=== PATIENT | female | born 1985 | race Caucasian/White ===

== ENCOUNTER 2016-09-05 09:19 | Emergency (ER) | payer OTHER ==
[~2016-09-05] VITALS: Ht 160 cm; Wt 78.0 kg
[~2016-09-05 09:19] MED LIST: CLIN-73 PO; GUAI-637 PO
[2016-09-05 09:22] VITALS: Ht 160 cm; Wt 78.0 kg
[2016-09-05] MEDS ORDERED: CEPH-443 PO (10:27)
[2016-09-05] MEDS ORDERED: BACTDS PO (10:27)
[2016-09-05] MEDS ORDERED: ERYTOPOI LEFT EYE (10:28)
--- NOTE | 2016-09-05 10:49 | ERD ---
ER Documentation Chief Complaint Date/Time DATE: 09/05/16 TIME: 10:41 Chief Complaint left eye swelling x 2 days HPI This is a 30-year-old female that presents to the ER with left upper eyelid swelling since Thursday. She believes that on Thursday a bug bit her left upper eyelid and upper eyelid began to feel very itchy. On Thursday and swelling increased. Today's swelling has worsened. Patient denies any eyelid pain or eyeball pain. She denies any vision changes, vision loss, halos around lights, flashing lights in her vision. She states that her eye is tearing. This morning her eye was sticky, she is unsure if this is considered discharge or not. Patient denies any eye trauma. ROS 12 point review of systems was done, all negative except per HPI. Medications Home Meds Active Scripts Erythromycin* (Erythromycin* Ophthalmic) 1 Applic Oint, 1 APPLIC LEFT EYE QID for 7 Days, EA Prov:SALINAS GUAN 09/05/16 Sulfamethoxazole-Trimethoprim* (Bactrim* DS) 800-160 Mg Tab, 1 TAB PO BID for 7 Days, TAB Prov:SALINAS GUAN 09/05/16 Cephalexin* (Keflex*) 500 Mg Capsule, 500 MG PO QID for 7 Days, CAP Prov:SALINAS GUAN 09/05/16 Guaifenesin* (Robitussin*) 100 Mg/5 Ml Syrup, 200 MG PO Q4H Y for COUGH, #120 ML Prov:RACHELLE JAUREGUI NP 06/09/16 Clindamycin Hcl* (Clindamycin Hcl*) 300 Mg Capsule, 450 MG PO TID for 10 Days, CAP Prov:REUBEN MATAMOROS PA-C 01/30/16 PMhx/Soc Medical and Surgical Hx: pt denies Surgical Hx Hx Alcohol Use: Yes (SOC) Hx Substance Use: No Hx Tobacco Use: No Smoking Status: Never smoker Physical Exam Vitals Vital Signs Date Time Temp Pulse Resp B/P Pulse Ox O2 Delivery O2 Flow Rate FiO2 09/05/16 09:22 98.2 77 20 132/86 99 Physical Exam GENERAL: The patient is well developed and appropriate for usual state of health , in no apparent distress. HEENT: PERRLA, nonpainful extraocular movements. Left upper eyelid is erythematous and swollen. It is not indurated. There is no conjunctival injection, no discharge is seen. There is no hyphema or hypopyon. CHEST: Clear to auscultation bilaterally. There are no rales, wheezes or rhonchi. HEART: Regular rate and rhythm. No murmurs, clicks, rubs or gallops. NEURO: Alert and oriented. SKIN: There is no apparent rash or petechia. The skin is warm and dry. Procedures/MDM Subconjunctival hemorrhage, bacterial conjunctivitis, viral conjunctivitis, allergic conjunctivitis,orbital cellulitis, hyphema, corneal abrasion, keratitis , uveitis, angle-closure glaucoma, retinal detachment, ruptured globe, blepharitis. I examined this patient along with Dr. Salazar who was also at bedside. This is likely blepharitis. Patient's conjunctiva or eye ball is not included. I doubt orbital cellulitis as patient does not have any painful extraocular movements. Patient will be sent home with Keflex and with Bactrim. She will also be sent home with erythromycin ointment. Patient is well- appearing she is afebrile. Patient has denied any vision loss, blurry vision or vision changes. He stable for outpatient therapy. Patient is to follow-up with her primary care doctor within 1-2 days or return to ER sooner if symptoms worsen. I discussed the possibility of following up with manager product marketing also. I shared my medical decision making with the patient she understands and agrees with plan. Departure Diagnosis: Primary Impression: Swollen eyelid Condition: Stable Patient Instructions: Blepharitis Additional Instructions: Call your primary care doctor TOMORROW for an appointment during the next 1-2 days.See the doctor sooner or return here if your condition worsens before your appointment time. SALINAS GUAN Sep 05, 2016 10:48
== END 2016-09-05 10:43 | disposition home or self-care (01) ==
LOC: FTE 09:19
DX: H02.844 Edema of left upper eyelid (principal); E03.9 Hypothyroidism, unspecified
CPT/HCPCS: 99284

== ENCOUNTER 2019-02-17 16:57 | Emergency (ER) | payer OTHER ==
[~2019-02-17] VITALS: Ht 162.6 cm; Wt 70.9 kg
[~2019-02-17 16:57] MED LIST changes: +BACTDS PO; +CEPH-443 PO; -CLIN-73 PO; +CLIN300C10 PO; +ERYTOPOI LEFT EYE
[2019-02-17 17:03] VITALS: BP 101/73; PULSE 94; RESP 22; Ht 162.6 cm; Wt 70.9 kg
[2019-02-17] MEDS ORDERED: IBUP-1542 PO (17:46)
[2019-02-17] MEDS ORDERED: ORA20G7 BUCCAL (17:46)
--- NOTE | 2019-02-17 17:49 | ERD ---
ER Documentation Chief Complaint Chief Complaint difficulty/painful swallowing x 3 days HPI Patient is a 33-year-old male, presents the ER for concerns of throat pain x3 days. Patient reports pain with swallowing. Patient also states when she touches a side of her left cheek with her tongue she feels pain. Patient denies any fevers or chills. Patient denies any drooling, trismus, hyper extension of her neck. Patient has no cough. Patient has no nausea, vomiting palpate or diarrhea. No recent travel. ROS All systems reviewed and are negative except as per history of present illness. Medications Home Meds Active Scripts Benzocaine* (Orajel Maximum*) 1 Applic Gel, 1 APPLIC BUCCAL BID, #1 TUB Prov:GRISELDA LEDEZMA PA-C 02/17/19 Ibuprofen* (Motrin*) 600 Mg Tab, 600 MG PO Q6, #30 TAB Prov:GRISELDA LEDEZMA PA-C 02/17/19 Erythromycin* (Erythromycin* Ophthalmic) 1 Applic Oint, 1 APPLIC LEFT EYE QID for 7 Days, EA Prov:SALINAS GUAN 09/05/16 Sulfamethoxazole-Trimethoprim* (Bactrim* DS) 800-160 Mg Tab, 1 TAB PO BID for 7 Days, TAB Prov:SALINAS GUAN 09/05/16 Cephalexin* (Keflex*) 500 Mg Capsule, 500 MG PO QID for 7 Days, CAP Prov:SALINAS GUAN 09/05/16 Guaifenesin* (Robitussin*) 100 Mg/5 Ml Syrup, 200 MG PO Q4H PRN for COUGH, #120 ML Prov:RACHELLE JAUREGUI NP 06/09/16 Clindamycin Hcl* (Clindamycin Hcl*) 300 Mg Capsule, 450 MG PO TID for 10 Days, CAP Prov:REUBEN MATAMOROS PA-C 01/30/16 Allergies Allergies: Coded Allergies: No Known Allergy (Unverified , 02/17/19) PMhx/Soc History of Surgery: No Anesthesia Reaction: No Hx Neurological Disorder: No Hx Respiratory Disorders: No Hx Cardiac Disorders: No Hx Psychiatric Problems: No Hx Miscellaneous Medical Probl: Yes (HYPOTHYROID ) Hx Alcohol Use: Yes (SOC) Hx Substance Use: Yes (former) Hx Tobacco Use: Yes Smoking Status: [facility] Family History: No diabetes Physical Exam Vitals Vital Signs Date Temp Pulse Resp B/P (MAP) Pulse Ox O2 O2 Flow FiO2 Time Delivery Rate 02/17/19 98.4 94 22 101/73 98 17:03 (82) Physical Exam GENERAL: Well-developed, well-nourished female. Appears in no acute distress. HEAD: Normocephalic, atraumatic. No deformities or ecchymosis. EYE: Pupils equal, round, and reactive to light. EOMs intact. No conjunctival erythema. No eye discharge. ENT: External ear without any masses or tenderness. Auditory canals clear bilaterally. TM visualized bilaterally, non-erythematous, non-bulging. Nasal mu cosa pink with no discharge. Aphthous ulcer noted on the left pupil region. Oropharynx is slightly erythematous, no exudates or tonsillar swelling noted. No uvula deviation. No kissing tonsils. No drooling. No trismus. No tongue swelling. NECK: Supple. No meningismus. Normal ROM of the neck. LUNG: Clear to auscultation bilaterally. No rhonchi, wheezing, rales or coarse breath sounds. HEART: Regular rate and rhythm. No murmurs, rubs or gallops. EXTREMITES: Equal pulses bilaterally. No peripheral clubbing, cyanosis or edema. No unilateral leg swelling. NEUROLOGIC: Alert and oriented to person, place and time. Moving all four e xtremities. 5/5 strength in all extremities. Normal speech. Steady gait. SKIN: Normal color. Warm and dry. No rashes or lesions. Procedures/MDM MEDICAL DECISION MAKING: This is a 33-year-old female presents the ER for concerns of throat pain x3 days. Vital signs were reviewed. Patient was afebrile. Patient was not hypoxic. The patient does not have trismus, muffled voice, uvula deviation, unilateral tonsillar swelling, or drooling. No signs of neck swelling or hyperextension of the neck noted. Physical exam vitals are consistent with aphthous ulcer and viral pharyngitis. Low suspicion for epiglottitis, peritonsillar abscess, retropharyngeal abscess, Ludwigs angina, strep pharyngitis, meningitis, dental abscess. Patient was nontoxic, [id number] prior to discharge. PRESCRIPTIONS: Ibuprofen, Orajel DISCHARGE: At this time, patient is stable for discharge and outpatient management. Supportive therapies such as OTC throat lozenges and warm salt water gurgles were discussed. I have instructed the patient to follow-up with his/her primary care physician in 1-2 days. I have discussed with the patient the possibility of needing to see a specialist for further workup and imaging studies if symptoms persist. I have instructed the patient to promptly return to the ER for any new or worsening symptoms including increased pain, fever, nausea, vomiting, weakness or LOC. The patient and/or family expressed understanding of and agreement with this plan. All questions were answered. Home care instructions were provided. Disclaimer: Inadvertent spelling and grammatical errors are likely due to EHR/dictation software use and do not reflect on the overall quality of patient care. Also, please note that the electronic time recorded on this note does not necessarily reflect the actual time of the patient encounter. Departure Diagnosis: Primary Impression: Pharyngitis Pharyngitis/tonsillitis etiology: unspecified etiology Qualified Codes: J02.9 - Acute pharyngitis, unspecified Additional Impression: Aphthous ulcer of mouth Condition: Fair Patient Instructions: Aphthous Ulcer, Pharyngitis, Viral Referrals: [facility] YOU HAVE RECEIVED A MEDICAL SCREENING EXAM AND THE RESULTS INDICATE THAT YOU DO NOT HAVE A CONDITION THAT REQUIRES URGENT TREATMENT IN THE EMERGENCY DEPARTMENT. FURTHER EVALUATION AND TREATMENT OF YOUR CONDITION CAN WAIT UNTIL YOU ARE SEEN IN YOUR DOCTORS OFFICE WITHIN THE NEXT 1-2 DAYS. IT IS YOUR RESPONSIBILITY TO MAKE AN APPOINTMENT FOR FOLOW-UP CARE. IF YOU HAVE A PRIMARY DOCTOR --you should call your primary doctor and schedule an appointment IF YOU DO NOT HAVE A PRIMARY DOCTOR YOU CAN CALL OUR PHYSICIAN REFERRAL HOTLINE AT IF YOU CAN NOT AFFORD TO SEE A PHYSICIAN YOU CAN CHOSE FROM THE FOLLOWING [facility] [address] [facility] [address] [facility] [place] [address] [facility] [address] [facility] [address] [facility] [address] [facility]. [facility] YOU HAVE RECEIVED A MEDICAL SCREENING EXAM AND THE RESULTS INDICATE THAT YOU DO NOT HAVE A CONDITION THAT REQUIRES URGENT TREATMENT IN THE EMERGENCY DEPARTMENT. FURTHER EVALUATION AND TREATMENT OF YOUR CONDITION CAN WAIT UNTIL YOU ARE SEEN IN YOUR DOCTORS OFFICE WITHIN THE NEXT 1-2 DAYS. IT IS YOUR RESPONSIBILITY TO MA KE AN APPOINTMENT FOR FOLOW-UP CARE. IF YOU HAVE A PRIMARY DOCTOR --you should call your primary doctor and schedule and appointment IF YOU DO NOT HAVE A PRIMARY DOCTOR YOU CAN CALL OUR PHYSICIAN REFERRAL HOTLINE AT . IF YOU CAN NOT AFFORD TO SEE A PHYSICIAN YOU CAN CHOSE FROM THE FOLLOWING [facility]: [facility] [address] [place] [address] [facility] [address] [place], [place] [id number] [place] [address] [address] [place] [address] Additional Instructions: Call your primary care doctor TOMORROW for an appointment during the next 1-2 days.See the doctor sooner or return here if your condition worsens before your appointment time. GRISELDA LEDEZMA PA-C Feb 17, 2019 17:49
== END 2019-02-17 17:57 | disposition home or self-care (01) ==
LOC: FTE 16:57
DX: J02.9 Acute pharyngitis, unspecified (principal); F17.210 Nicotine dependence, cigarettes, uncomplicated; K12.0 Recurrent oral aphthae
CPT/HCPCS: 99282